=== PATIENT | male | born 1965 | race Caucasian/White ===

== ENCOUNTER 2017-10-04 10:39 | Emergency (ER) | payer SELFPAY ==
[~2017-10-04] VITALS: Ht 182.9 cm; Wt 77.0 kg
[2017-10-04 10:44] VITALS: Ht 182.9 cm; Wt 77.0 kg
[2017-10-04] MEDS ORDERED: CEFEPIME 2GM/50 ML (PMX) 50 ML IVPB STA (10:52)
[2017-10-04] MEDS ORDERED: SODIUM CHLORIDE 0.9% 1L BAG IV* STA (10:52)
[2017-10-04] MEDS ORDERED: VANCOMYCIN 1 GM (PMX) 250 ML IVPB ONE (11:00)
[2017-10-04 11:21] LABS: AADO2 Arterial 98.7 mmHg (7.0-24.0); Allen Test ACCEPTAB; Arterial Base Excess -1.3 mmol/L (-3.0-3); Arterial COHb 0.3 % (0.0-3.0); Arterial Fraction of Oxyhgb 98.2 % (93.0-99.0); Arterial HCO3 23.4 mmol/L (22.0-26.0); Arterial MetHb 0.1 % (0.0-1.5); Arterial Total Hemglobin 10.8 g/dl (12.0-18.0); MODE VENT - AC
--- NOTE | 2017-10-04 11:25 | RADRPT ---
PROCEDURE: XR Chest. CLINICAL INDICATION: Shortness of breath TECHNIQUE: Single portable view of the chest was obtained COMPARISON: No priors for comparison FINDINGS: Tracheostomy tube in situ.. The cardiac silhouette and pulmonary vascularity are within normal limit s. There is a left lower lobe consolidation and left-sided pleural effusion. IMPRESSION: 1. Left lower lobe consolidation and small left pleural effusion. Findings are worrisome for pneumon ia in the appropriate clinical setting. Recommend follow-up to resolution. RPTAT: AAPP Physician Romulo Date Time Electronically viewed and signed by Physician Romulo on 10/04/2017 11:24 MELO/
[2017-10-04] MEDS ORDERED: ACETAMINOPHEN 650 MG SUPP PR ONE (11:30)
[2017-10-04 12:07] LABS: BASOPHILS % 0.3 % (0.0-2.0); EOSINOPHILS # 0.5 10^3/ul (0.0-0.5); EOSINOPHILS % 4.8 % (0.0-7.0); HEMOGLOBIN 8.7 g/dl (14.0-18.0); LYMPHOCYTES # 1.4 10^3/ul (0.8-2.9); LYMPHOCYTES % 13.5 % (15.0-51.0); MEAN CORPUSCULAR HEMOGLOBIN 27.4 pg (29.0-33.0); MEAN CORPUSCULAR HGB CONC 31.1 g/dl (32.0-37.0); MEAN CORPUSCULAR VOLUME 88.1 fl (82.0-101.0); MONOCYTE # 1.5 10^3/ul (0.3-0.9); NEUTROPHIL # 6.6 10^3/ul (1.6-7.5); NEUTROPHILS % 65.8 % (39.0-77.0); PLATELET COUNT 251 10^3/UL (140-415); POSITIVE DIFF @See below; RED BLOOD COUNT 3.18 10^6/ul (4.70-6.10); RED CELL DISTRIBUTION WIDTH 15.1 % (11.5-14.5)
[2017-10-04 12:18] LABS: INR 1.12; PROTIME 14.6 Sec (11.9-14.9); PT RATIO 1.1
[2017-10-04 12:19] LABS: PARTIAL THROMBOPLASTIN TIME 35.9 Sec (25.0-35.0)
[2017-10-04 12:24] LABS: ALANINE AMINOTRANSFERASE 45 IU/L (13-69); ALBUMIN 3.3 g/dl (3.3-4.9); ALBUMIN/GLOBULIN RATIO 0.66; ALKALINE PHOSPHATASE 161 IU/L (42-121); ANION GAP 16 (8-16); ASPARTATE AMINO TRANSFERASE 34 IU/L (15-46); BILIRUBIN,INDIRECT 0.1 mg/dl (0-1.1); BILIRUBIN,TOTAL 0.1 mg/dl (0.2-1.3); BLOOD UREA NITROGEN 47 mg/dl (7-20); CALCIUM 9.2 mg/dl (8.4-10.2); CARBON DIOXIDE 24 mmol/L (21-31); CHLORIDE 107 mmol/L (97-110); CREATININE 1.15 mg/dl (0.61-1.24); GLUCOSE 118 mg/dl (70-220); POTASSIUM 5.5 mmol/L (3.5-5.1); SODIUM 141 mmol/L (135-144); TOTAL PROTEIN 8.3 g/dl (6.1-8.1)
[2017-10-04] MEDS ORDERED: CHOL400T10 GTB (12:34)
[2017-10-04] MEDS ORDERED: CIPR-193 GTB (12:36)
[2017-10-04] MEDS ORDERED: FENT-65 TD (12:37)
[2017-10-04] MEDS ORDERED: HEP30MU30 IJ (12:37)
[2017-10-04] MEDS ORDERED: HYDR-905 GTB (12:38)
[2017-10-04] MEDS ORDERED: HYDR2TAB3 GTB (12:39)
[2017-10-04] MEDS ORDERED: METO10TA92 GTB (12:40)
[2017-10-04] MEDS ORDERED: METO-448 GTB (12:41)
[2017-10-04] MEDS ORDERED: MUPI15CR9 TOP (12:42)
[2017-10-04 12:43] LABS: TROPONIN-I < 0.012 ng/ml (0.00-0.12)
[2017-10-04] MEDS ORDERED: NYST15CR28 TOP (12:43)
[2017-10-04] MEDS ORDERED: NYST1000 GTB (12:43)
[2017-10-04] MEDS ORDERED: POLY17PO3 PO (12:44)
[2017-10-04] MEDS ORDERED: MINE3.5O31 BOTH EYES (12:44)
[2017-10-04] MEDS ORDERED: PROP10TA6 GTB (12:45)
[2017-10-04] MEDS ORDERED: CLON-379 GTB (12:46)
[2017-10-04] MEDS ORDERED: ACET-2047 GTB (12:47)
[2017-10-04 12:55] LABS: ADD UMIC NO; UR ASCORBIC ACID 40 mg/dL (NEGATIVE); UR BILIRUBIN (Dip) NEGATIVE (NEGATIVE); UR BLOOD (Dip) NEGATIVE (NEGATIVE); UR CLARITY CLEAR (CLEAR); UR COLOR YELLOW (YELLOW); UR GLUCOSE (Dip) NEGATIVE (NEGATIVE); UR KETONES (Dip) NEGATIVE (NEGATIVE); UR LEUKOCYTE ESTERASE (Dip) NEGATIVE Leu/ul (NEGATIVE); UR NITRITE (Dip) NEGATIVE (NEGATIVE); UR SPECIFIC GRAVITY (Dip) 1.023 (1.003-1.030); UR TOTAL PROTEIN (Dip) NEGATIVE (NEGATIVE); UR UROBILINOGEN (Dip) NEGATIVE (NEGATIVE)
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
[2017-10-04] MEDS ORDERED: CEFEPIME 2GM/50 ML (PMX) 50 ML IVPB ONE (20:00)
[2017-10-04 23:42] VITALS: TEMP 98.1
[2017-10-05 00:40] VITALS: BP 144/83; PULSE 97; RESP 23
== END 2017-10-05 00:58 | disposition short-term general hospital (02) ==
LOC: E/R 10:39
DX: J18.9 Pneumonia, unspecified organism (principal); L51.1 Stevens-Johnson syndrome; R40.2132 Coma scale, eyes open, to sound, at arrival to emergency department; R40.2222 Coma scale, best verbal response, incomprehensible words, at arrival to emergency department; R40.2312 Coma scale, best motor response, none, at arrival to emergency department; R06.02 Shortness of breath
CPT/HCPCS: 36415; 36600; 51702; 71010; 80053; 81003; 82803; 83605; 84484; 85025; 85610; 85730; 87040; 87086; 93005; 94002; 94003; 96374; 96375; 96376; 99291; J0692; J3370; J7030